=== PATIENT | female | born 1955 | race Asian ===

== ENCOUNTER 2023-03-20 07:02 | Emergency (ER) | payer MEDICARE, MEDICAID ==
[~2023-03-20] VITALS: Ht 157.5 cm; Wt 64.0 kg
[~2023-03-20 07:02] MED LIST: ALBUTEROL; LASIX PO; LEVO500T2 PO; METR500T PO; PRED10TA23 PO; PROSOL IH; PROT40 PO; SIMVASTATIN PO; VALIUM PO
[2023-03-20 07:11] VITALS: BP 177/97
[2023-03-20] MEDS ORDERED: ACETAMINOPHEN 325MG TABLET PO ONE (08:00)
== END 2023-03-20 14:16 | disposition home or self-care (01) ==
LOC: ER 07:02
DX: K44.9 Diaphragmatic hernia without obstruction or gangrene (principal); I10 Essential (primary) hypertension; Z98.890 Other specified postprocedural states
CPT/HCPCS: 71250; 72131; 99284